=== PATIENT | male | born 2000 | race Caucasian/White ===

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

== ENCOUNTER 2022-01-25 17:58 | Emergency (ER) | payer BC, MEDICAID ==
[~2022-01-25] VITALS: Ht 177.8 cm; Wt 78.2 kg
[~2022-01-25 17:58] MED LIST: HYDR-3686 PO; OLAN10TA21 PO; TRAZ-251 PO; VENL75CA61 PO
[2022-01-25 18:50] VITALS: BP 106/85
[2022-01-25 19:56] LABS: BASOPHILS # (AUTO) 0.1 X10'3 (0-0.2); BASOPHILS % (AUTO) 0.6 % (0-1); EOSINOPHILS % (AUTO) 0 % (0-6); HEMATOCRIT 45.7 % (42.0-52.0); HEMOGLOBIN 15.9 g/dl (14.0-17.9); LYMPHOCYTES # (AUTO) 1.5 X10'3 (1.1-4.8); LYMPHOCYTES % (AUTO) 16.6 % (21-51); MEAN CORPUSCULAR HEMOGLOBIN 29.1 PG (27.0-31.0); MEAN CORPUSCULAR HGB CONC 34.8 g/dL (33.0-36.5); MEAN CORPUSCULAR VOLUME 83.6 FL (78-98); MEAN PLATELET VOLUME 7.2 FL (7.4-10.4); MONOCYTES % (AUTO) 10.5 % (2-12); NEUTROPHILS # (AUTO) 6.7 X10'3 (1.8-7.7); NEUTROPHILS % (AUTO) 72.3 % (42-75); PLATELET COUNT 352 X10'3 (140-440); RED BLOOD COUNT 5.46 X10'6 (4.70-6.10); RED CELL DISTRIBUTION WIDTH 12.9 % (11.5-14.5); WHITE BLOOD COUNT 9.2 X10'3 (4.5-11.0)
[2022-01-25 20:01] LABS: ALANINE AMINOTRANSFERASE 27 U/L (12-78); ALBUMIN 5.2 G/DL (3.4-5.0); ALBUMIN/GLOBULIN RATIO 1.7 (1.1-1.5); ALKALINE PHOSPHATASE 81 IU/L (20-180); ANION GAP 14 (8-16); ASPARTATE AMINO TRANSFERASE 25 U/L (10-37); BILIRUBIN,TOTAL 0.5 MG/DL (0.1-1.0); BLOOD UREA NITROGEN 12 MG/DL (7-18); BUN/CREATININE RATIO 10.2 (5.4-32.0); CALCIUM 9.1 MG/DL (8.5-10.1); CHLORIDE 103 MMOL/L (99-107); CREATININE 1.18 MG/DL (0.60-1.10); GLUCOSE 95 MG/DL (70-104); POTASSIUM 3.5 MMOL/L (3.5-5.1); SODIUM 142 MMOL/L (135-145); TOTAL CARBON DIOXIDE 25.5 MMOL/L (24-32); TOTAL PROTEIN 8.2 G/DL (6.4-8.2); eGFR 80 ML/MIN
== END 2022-01-25 21:19 | disposition home or self-care (01) ==
LOC: ER 18:01
DX: S00.83XA Contusion of other part of head, initial encounter (principal); M54.2 Cervicalgia; R56.9 Unspecified convulsions; Z79.899 Other long term (current) drug therapy; W10.8XXA Fall (on) (from) other stairs and steps, initial encounter; Y93.89 Activity, other specified; Y92.89 Other specified places as the place of occurrence of the external cause; Y99.8 Other external cause status
CPT/HCPCS: 36415; 70450; 80053; 85025; 99284

== ENCOUNTER 2022-01-27 17:02 | Inpatient (IN) | payer BC, MEDICAID ==
[~2022-01-27] VITALS: Ht 177.8 cm; Wt 78.6 kg
[2022-01-27 21:20] VITALS: BP 133/72
[2022-01-27] MEDS ORDERED: acetaminophen 325mg tablet PO PRN ×2 (21:20)
[2022-01-27] MEDS ORDERED: mag hydrox/Alum hydrox/simeth 30ml oral suspension PO PRN (21:20)
[2022-01-27] MEDS ORDERED: magnesium hydroxide 30ml (MOM) UD suspension PO PRN (21:20)
[2022-01-27] MEDS ORDERED: NICOTINE POLACRILEX 2 MG LOZENGE BC PRN (21:20)
[2022-01-27] MEDS ORDERED: loperamide 2mg capsule PO PRN (21:20)
[2022-01-27] MEDS: traZODone 50mg tablet PO PRN (22:34)
--- NOTE | 2022-01-28 04:24 | NUR ---
NURSING ADMISSION NOTE Pt arrived on [facility] on 01/27/22 at 2108 as a direct admit from [facility]. 2 RN skin check completed, pt showered and changed into green scrubs. 5150 advisement completed, pt verbalized understanding. Pt was hospitalized after father reported pt had not been taking his medications properly and had been hallucinating and violent towards family. Per pt he states he had started new medications approx 2 months ago and was not feeling right on them. He felt weak and weightless. Pt states that feeling had been happening for about 2 weeks and then he had 7 seizures within 2 days, one in which he fell down steps and cut the bridge of his nose. Medical HX: autism and psychosis
[2022-01-28 08:00] VITALS: BP 126/69
[2022-01-28] MEDS ORDERED: nicotine 21mg patch - 24 hr TD SCH (08:00)
[2022-01-28 08:46] LABS: CHOL/HDL RATIO 3.6 (0.00-4.99); CHOLESTEROL 151 MG/DL (0-200); HDL CHOLESTEROL 42 MG/DL (35-60); LDL CHOLESTEROL 87 MG/DL (50-100); TRIGLYCERIDES 90 MG/DL (20-135)
[2022-01-28] MEDS ORDERED: hydrALAZINE 25 MG tablet PO PRN (09:10)
[2022-01-28] MEDS ORDERED: traZODone 50mg tablet PO PRN (09:10)
[2022-01-28] MEDS ORDERED: venlafaxine 37.5mg tablet PO ONE (09:25)
[2022-01-28] MEDS ORDERED: ESCI-8 PO (11:02)
[2022-01-28] MEDS ORDERED: HYDR-3686 PO (11:08)
[2022-01-28] MEDS ORDERED: OLAN5TAB29 PO (11:08)
[2022-01-28] MEDS ORDERED: OLAN10TA21 PO (11:12)
[2022-01-28] MEDS ORDERED: VENL75TA90 PO (11:12)
[2022-01-28] MEDS ORDERED: TRAZ-251 PO (11:12)
--- NOTE | 2022-01-28 14:49 | NUR ---
NURSING PROGRESS NOTE: Problem : Pt was hospitalized after father reported pt had not been taking his medications properly and had been hallucinating and violent towards family. Per pt he states he had started new medications approx 2 months ago and was not feeling right on them. He felt weak and weightless. Pt states that feeling had been happening for about 2 weeks and then he had 7 seizures within 2 days, one in which he fell down steps and cut the bridge of his nose. Interventions: Maintained a safe and supportive environment, provided clear and simple instructions, ensured contract for safety, and provided active listening and positive encouragement, monitored behaviors. Encouraged participation of ADLs, and maintained Q 15min safety checks. Response : Pt was a new admit last night. Pt was sleeping restfully at shift change. Pt attended all meals in group room. Pt was compliant with care and medication. Pt presents guarded and feels he is here because I am having seizures. Pt believes his mood is r/t to a medication he started 2 weeks ago. Pt unsure of what medication he was on. Pt asked Am I going to be here long, I just want to go home. Pt denies suicidal and homicidal thoughts. Pt has a small abrasion on his nose, which was cleansed and a picture taken and placed in chart. Pt was social with peers this afternoon, participated in a group card game. Plan : Pt will be assessed and treatment plan initiated to interrupt current crisis. Pt will be encouraged to participate in unit milieu. Pt requires medication initiation and stabilization.
--- NOTE | 2022-01-28 18:15 | NUR ---
assumed care of patient after receiving report.
[2022-01-28 20:00] VITALS: BP 143/61
[2022-01-28] MEDS ORDERED: olanzapine 10mg tablet PO SCH (21:00)
[2022-01-28 21:30] VITALS: BP 138/66
[2022-01-28] MEDS: traZODone 50mg tablet PO PRN (21:31)
--- NOTE | 2022-01-28 21:40 | NUR ---
Med note: Client received 500 mg Depokote Tab PO and 15 mg Zyprexa Zydis ODT PO during PM med pass, in error. Client is prescribed 10 mg Zyprexa Tab PO HS. Client is not prescribed Depokote. Client has NKDA. SUKHJINDER Reece was notified. Vital signs were obtained 45 min post admin and are as follows: HR 69 Resp 16 O2 Sat 99% BP 138/66 (supine) No med side effects were noted, or reported by client. Will continue to monitor.
--- NOTE | 2022-01-29 03:24 | NUR ---
pt sleeping throughout night. pt refused to discuss current situation. took medications and went to bed. pt was appropriate and polite.
[2022-01-29] MEDS ORDERED: hydrOXYzine 25 MG tablet PO PRN (05:20)
[2022-01-29 07:55] VITALS: BP 109/60
[2022-01-29] MEDS ORDERED: venlafaxine 37.5mg tablet PO SCH (08:00)
--- NOTE | 2022-01-29 10:22 | NUR ---
Critical Lab: Lab called. Pt has positive MRSA nasal swab. Pt encouraged to wash hands to prevent infection transfer.
--- NOTE | 2022-01-29 14:26 | NUR ---
NURSING PROGRESS NOTE: Problem : Pt was hospitalized after father reported pt had not been taking his medications properly and had been hallucinating and violent towards family. Per pt he states he had started new medications approx 2 months ago and was not feeling right on them. He felt weak and weightless. Pt states that feeling had been happening for about 2 weeks and then he had 7 seizures within 2 days, one in which he fell down steps and cut the bridge of his nose. Interventions: Maintained a safe and supportive environment, provided clear and simple instructions, ensured contract for safety, and provided active listening and positive encouragement, monitored behaviors. Encouraged participation of ADLs, and maintained Q 15min safety checks. Pt + for MRSA. Pt educated on the importance of good hand hygiene. Response: Pt continues to be pleasant and cooperative with unit milieu. Pt attends all meals in group room. Pt denies currently denies A/VH, states his recent hallucinations were r/t his medication. Pt denies any current falls or episodes of vertigo. Pt states I dont feel I was getting violent with my family. Unsure of why they would say that. Pt slept most of the morning, when he woke he was in a pleasant mood, reporting he slept well. Pt watched T.V and socialized with peers. Pts hold is up tomorrow and he hopes to go home. Pt has had no behaviors to report. Pt present A&OX4. Pt continues to report no adverse side effects from previous shift med error (see notes in [employer].) Vitals remain WNL. Pt verbalized understanding to education on hand hygiene. Plan : Patient is unable to formulate a plan for food, fdc and clothing r/t severity of his mental illness. Pts mood appears to be improving. Medications are being titrated until therapeutic level can be reached. Pt will discharge to home when stable.
[2022-01-29] MEDS ORDERED: LORazepam 1 MG tablet PO ONE (16:50)
--- NOTE | 2022-01-29 17:42 | NUR ---
PRNs Administered: Ativan 1 mg tablet. Administered at 1655 Interventions Offered: Pt was feeling anxious r/t upcoming discharge tomorrow. Received order for 1 time dose from SUKHJINDER Kulkarni Response to Medication: Effective, pt reports decreased anxiety. Sitting calmly group room visiting with peers.
[2022-01-29 19:51] VITALS: BP 147/80
[2022-01-29] MEDS: OLANZAPINE 5 MG TABLET PO SCH (20:11)
[2022-01-29] MEDS: traZODone 50mg tablet PO PRN (20:11)
--- NOTE | 2022-01-30 03:24 | NUR ---
Nursing Progress Note: Problem : Pt was hospitalized after father reported pt had not been taking his medications properly and had been hallucinating and violent towards family. Per pt he states he had started new medications approx 2 months ago and was not feeling right on them. He felt weak and weightless. Pt states that feeling had been happening for about 2 weeks and then he had 7 seizures within 2 days, one in which he fell down steps and cut the bridge of his nose. Interventions: Maintained a safe and supportive environment, provided clear and simple instructions, ensured contract for safety, and provided active listening and positive encouragement, monitored behaviors. Encouraged participation of ADLs, and maintained Q 15min safety checks. Pt + for MRSA. Pt educated on the importance of good hand hygiene. Response: Patient was out on the unit between his room and group room. He's pleasant and cooperative, but doesn't want to talk about his psych history. Patient currently denies all MH symptoms. He's aware of being MRSA positive, and knows to do good hand hygiene. He denies ase to his medications, and hopes to leave when hold is up. He was compliant with HS meds and was in bed soon after. Plan : Patient is unable to formulate a plan for food, chcf and clothing r/t severity of his mental illness. Pts mood appears to be improving. Medications are being titrated until therapeutic level can be reached. Pt will discharge to home when stable.
[2022-01-30 08:00] VITALS: BP 121/57
[2022-01-30] MEDS: venlafaxine XR 75mg capsule (Q24H) PO SCH (08:35)
[2022-01-30] MEDS: venlafaxine XR 37.5mg cap (Q24H) PO SCH (08:50)
--- NOTE | 2022-01-30 12:07 | NUR ---
DCP Presenting Issues: Pt's 5150 will tonight @ 2108, per chart, pt's to rt home when ready; pt lives w/parents and wants to rt home. Interventions: Clinician had t/c w/pt's father- Chandan @ [phone] and engaged him in dcp activities. Per t/c family would like for pt to rt home when he's ready to, pt has appointment with [facility] tomorrow at 11 AM, father wants to know if pt will be returning home tonight at the end of 5150 Hold. Plan: Clinician to consult w/attending PA re d/c, and confirm pt's f/u with [facility]. Cheryl Dougherty LCSW Addendum: 01/30/22 at 1223 by Cheryl Dougherty SS Amended: Links added.
--- NOTE | 2022-01-30 16:21 | NUR ---
Nursing Progress Note: Problem: Pt was hospitalized after father reported pt had not been taking his medications properly and had been hallucinating and violent towards family. Per pt he states he had started new medications approx 2 months ago and was not feeling right on them. He felt weak and weightless. Pt states that feeling had been happening for about 2 weeks and then he had 7 seizures within 2 days, one in which he fell down steps and cut the bridge of his nose. Pt. currently denies all MH s/s aside from anxiety, however he presents as withdrawn and possibly depressed. Interventions : Introduced self and established rapport, maintained a safe and supportive environment, ensured contract for safety, provided clear and simple instructions, encouraged participation on the unit, and maintained Q 15min safety checks. Response : Received pt. sleeping in bed at the beginning of the shift, he was awoken for breakfast and afterwards retreated back to bed. Pt. was awoken to take his medication and presents as cooperative, fatigued, anxious, guarded, and withdrawn. 1:1 was completed at bedside, pt. responds minimally to direct questions only and exhibits poverty of thought. He denies all MH s/s aside from anxiety and states, "I just want to get out of here." Pt. continues to isolate in his room throughout much of the shift. He presents with possible depression and appears to be minimizing any s/s. Pt. is observed to be up the Group Room intermittently in the afternoon, however remains withdrawn from others. Plan : Per SUKHJINDER Benedict pt. continues to require a safe and supportive environment and medication titration.
[2022-01-30] MEDS ORDERED: TRAZ-256 PO (19:44)
[2022-01-30] MEDS ORDERED: HYDR-3686 PO (19:44)
[2022-01-30] MEDS ORDERED: OLAN15TA35 PO (19:44)
[2022-01-30] MEDS ORDERED: VENL150T3 PO (19:44)
[2022-01-30] MEDS: OLANZAPINE 5 MG TABLET PO SCH (20:16)
[2022-01-30 20:51] VITALS: BP 103/76
--- NOTE | 2022-01-31 03:10 | NUR ---
Nursing Progress Note: Problem : Pt was hospitalized after father reported pt had not been taking his medications properly and had been hallucinating and violent towards family. Per pt he states he had started new medications approx 2 months ago and was not feeling right on them. He felt weak and weightless. Pt states that feeling had been happening for about 2 weeks and then he had 7 seizures within 2 days, one in which he fell down steps and cut the bridge of his nose. Interventions: Maintained a safe and supportive environment, provided clear and simple instructions, ensured contract for safety, and provided active listening and positive encouragement, monitored behaviors. Encouraged participation of ADLs, and maintained Q 15min safety checks. Pt + for MRSA. Pt educated on the importance of good hand hygiene. Response: Patient isolated to his room most of the night. He was out briefly at snack time. He declined 1:1, and knows he's discharging home in the morning at 10. He will return home to his parents care, and they will help monitor his medications. Plan : Patient is unable to formulate a plan for food, fdc and clothing r/t severity of his mental illness. Pts mood appears to be improving. Medications are being titrated until therapeutic level can be reached. Pt will discharge to home when stable.
--- NOTE | 2022-01-31 07:22 | NUR ---
Initial: pt admitted w/ psychosis per EMR. Currently on Regular diet w/ double protein TID per diet order, eating 100% of meals greatly exceeding nutrient needs. Recommend discontinuing double protein. LBM 01/29 w/ PRN bowel care. No nutrition intervention implemented at this time, will continue to monitor. Recs; 1. Continue Regular diet as tolerated 2. Discontinue Double protein 3. Bowel care per rx 4. Weekly wts Addendum: 01/31/22 at [address] Amended: Links added.
[2022-01-31 08:00] VITALS: BP 120/55
[2022-01-31] MEDS: venlafaxine XR 37.5mg cap (Q24H) PO SCH (08:24)
[2022-01-31] MEDS: venlafaxine XR 75mg capsule (Q24H) PO SCH (08:24)
--- NOTE | 2022-01-31 08:47 | NUR ---
D/C Presenting Issues: Pt's [id number] last night, attending PA d/c pt. Interventions: Clinician had t/c w/pt's father to finalize dcp and confirm pharmacy picking tech time. Per t/c pt's father will pick pt up @ 10AM and take pt to his 11AM follow-up appointment at [facility]. Plan: Pt d/c to rt home w/family and f/u with [facility]. Cheryl Dougherty LCSW Addendum: 01/31/22 at 0850 by Cheryl Dougherty SS Amended: Links added.
--- NOTE | 2022-01-31 09:49 | NUR ---
Discharge Note: Pt. was discharged from the unit accompanied by staff to the car of his father who will be transporting him back home. Pt's belongings were inventoried and returned to him. This telegraphic typewriter operator chief reviewed pt's medications and discharge instructions with him and he reported understanding. Pt. will picker/puller his medications at his preferred pharmacy. Pt. is able to contract for the safety of himself and others.
== END 2022-01-31 10:00 | disposition home or self-care (01) | DRG 885 ==
LOC: ADULT MH 20:00
PROVIDERS: ADMIT Psychiatry & Neurology Psychiatry; ATTEND Psychiatry & Neurology Psychiatry
DX: F23 Brief psychotic disorder (principal); F41.1 Generalized anxiety disorder; F32.9 Major depressive disorder, single episode, unspecified; F43.12 Post-traumatic stress disorder, chronic; F90.2 Attention-deficit hyperactivity disorder, combined type; F84.0 Autistic disorder; R56.9 Unspecified convulsions; S00.31XA Abrasion of nose, initial encounter; W10.9XXA Fall (on) (from) unspecified stairs and steps, initial encounter; Y93.01 Activity, walking, marching and hiking; Z91.14 Patient's other noncompliance with medication regimen; Y92.098 Other place in other non-institutional residence as the place of occurrence of the external cause
CPT/HCPCS: 36415; 80061; 87081; Q0177